=== PATIENT | male | born 1980 | race Asian ===

== ENCOUNTER 2021-01-23 12:42 | Inpatient (IN) | payer OTHER, SELFPAY ==
[~2021-01-23] VITALS: Ht 170.2 cm; Wt 63.5 kg
[2021-01-23 12:43] VITALS: BP 118/61
[2021-01-23] MEDS ORDERED: ACETAMINOPHEN WITH CODEINE 1 TAB TAB PO ONE (14:30)
[2021-01-23] MEDS ORDERED: 0.9% NACL 250ML IVPB ONE (14:30)
[2021-01-23] MEDS ORDERED: AZITHROMYCIN 250 MG TABLET PO ONE (14:30)
[2021-01-23] MEDS ORDERED: ALBUTEROL INHALER 90MCG/INH IH PRN (14:30)
[2021-01-23] MEDS ORDERED: CEFTRIAXONE 1G VIAL IVP ONE (14:30)
[2021-01-23 14:53] LABS: HEMATOCRIT 42.3 % (42-54); LYMPHOCYTES % (AUTO) 11.6 % (21.0-51.0); MEAN CORPUSCULAR HGB CONC 33.6 g/dL (32.0-36.0); MEAN CORPUSCULAR VOLUME 86.3 fL (79-99); MONOCYTES % (AUTO) 4.5 % (3.0-13.0); NEUTROPHILS % (AUTO) 83.7 % (40.0-77.0); PLATELET COUNT (AUTO) 115 K/uL (130-400); RED CELL DISTRIBUTION WIDTH 12.1 % (11.0-15.5); WHITE BLOOD COUNT (AUTO) 4.6 K/uL (4.8-10.8)
[2021-01-23 14:57] LABS: ABG BASE EXCESS 3.1 mmol/L (-2.0-3.0); ABG OXYGEN SATURATION 89.3 % (95.0-99.0); ABG PCO2 39 mmHg (35-48)
[2021-01-23 15:03] LABS: CREATININE 0.9 mg/dL (0.5-1.5); POTASSIUM 3.2 mmol/L (3.5-5.1)
[2021-01-23 15:08] LABS: ALBUMIN 3.8 g/dL (3.5-5.0); BILIRUBIN,TOTAL 0.5 mg/dL (0.2-1.0); CRP QUANTITATIVE 50.5 mg/L (0.00-9.0)
[2021-01-23 15:16] LABS: B-TYPE NATRIURETIC PEPTIDE < 5 pg/mL (0-100)
[2021-01-23 15:51] VITALS: BP 121/65
[2021-01-23] MEDS ORDERED: POTASSIUM BICARB/CIT AC 25 MEQ TABLET.EFF PO ONE (15:53)
[2021-01-23] MEDS ORDERED: ONDANSETRON 4MG INJ IV PRN (17:30)
[2021-01-23] MEDS ORDERED: LACTULOSE 20 GM/30 ML UDCUP PO PRN (17:30)
[2021-01-23] MEDS: CEFTRIAXONE 1G VIAL IVP SCH (17:30)
[2021-01-23] MEDS ORDERED: ACETAMINOPHEN 325 MG TAB PO PRN (17:30)
[2021-01-23] MEDS: DEXAMETHASONE SOD PHOSPHATE 4 MG/ML 1ML VIAL IVP SCH (18:04)
[2021-01-23] MEDS: DOXYCYCLINE 100MG+NS 250ML IV SCH (18:04)
[2021-01-23 18:29] VITALS: BP 128/72
[2021-01-23] MEDS ORDERED: FAMOTIDINE 20MG VIAL IV SCH (21:00)
[2021-01-23 21:52] VITALS: BP 121/68
[2021-01-23 23:07] VITALS: BP 128/75
[2021-01-24] VITALS (7 sets, daily range): BP systolic 97–150; BP diastolic 52–78
[2021-01-24] MEDS: CEFTRIAXONE 1G VIAL IVP SCH (05:20)
[2021-01-24] MEDS: DOXYCYCLINE 100MG+NS 250ML IV SCH (05:20)
[2021-01-24 05:21] LABS: BASOPHILS % (AUTO) 0.2 % (0.0-5.0); HEMATOCRIT 43.4 % (42-54); MEAN CORPUSCULAR HGB CONC 34.1 g/dL (32.0-36.0); MEAN CORPUSCULAR VOLUME 84.9 fL (79-99); MONOCYTES % (AUTO) 6.8 % (3.0-13.0); NEUTROPHILS % (AUTO) 69.8 % (40.0-77.0); PLATELET COUNT (AUTO) 123 K/uL (130-400); RED BLOOD CELL COUNT(AUTO) 5.11 MIL/uL (4.50-6.20); RED CELL DISTRIBUTION WIDTH 12.1 % (11.0-15.5); WHITE BLOOD COUNT (AUTO) 4.1 K/uL (4.8-10.8)
[2021-01-24 05:36] LABS: ALBUMIN 3.6 g/dL (3.5-5.0); BILIRUBIN,TOTAL 0.4 mg/dL (0.2-1.0); CREATININE 0.9 mg/dL (0.5-1.5); CRP QUANTITATIVE 52.4 mg/L (0.00-9.0); POTASSIUM 3.9 mmol/L (3.5-5.1); TOTAL PROTEIN, SERUM 8.1 g/dL (6.0-8.3)
[2021-01-24] MEDS ORDERED: PHARMACY COMMUNICATION**REMDESIVIR ORDER MISC SCH (08:00)
[2021-01-24] MEDS ORDERED: ASCORBIC ACID 500 MG TAB PO SCH (09:00)
[2021-01-24] MEDS ORDERED: ASCORBIC ACID 500 MG TAB ONE (09:27)
[2021-01-24] MEDS ORDERED: FAMOTIDINE 20MG VIAL IV ONE (09:28)
[2021-01-24] MEDS ORDERED: COMPOUND IV REFRIGERATED 1 EACH IVSOLN MISC PRN (09:30)
[2021-01-24] MEDS: ENOXAPARIN SODIUM 40 MG/0.4 ML SYRINGE SQ SCH (10:19)
[2021-01-24] MEDS ORDERED: REMDESIVIR (EUA) 520 200 MG in 0.9% NACL 250ML 250 ML IV SCH (14:00)
[2021-01-24] MEDS: DEXAMETHASONE SOD PHOSPHATE 4 MG/ML 1ML VIAL IVP SCH (17:02)
[2021-01-25] VITALS (17 sets, daily range): BP systolic 83–111; BP diastolic 48–69
[2021-01-25] MEDS: ACETAMINOPHEN 325 MG TAB PO PRN ×2 (02:00→23:33)
[2021-01-25 05:07] LABS: HEMATOCRIT 40.4 % (42-54); LYMPHOCYTES % (AUTO) 17.5 % (21.0-51.0); MEAN CORPUSCULAR HEMOGLOBIN 28.5 pg (27.0-33.0); MEAN CORPUSCULAR HGB CONC 33.7 g/dL (32.0-36.0); MEAN CORPUSCULAR VOLUME 84.7 fL (79-99); MONOCYTES % (AUTO) 9.2 % (3.0-13.0); NEUTROPHILS % (AUTO) 73.1 % (40.0-77.0); PLATELET COUNT (AUTO) 133 K/uL (130-400); RED BLOOD CELL COUNT(AUTO) 4.77 MIL/uL (4.50-6.20); RED CELL DISTRIBUTION WIDTH 12.1 % (11.0-15.5)
[2021-01-25 05:27] LABS: ALBUMIN 3.2 g/dL (3.5-5.0); BILIRUBIN,TOTAL 0.4 mg/dL (0.2-1.0); CREATININE 0.8 mg/dL (0.5-1.5); CRP QUANTITATIVE 23.8 mg/L (0.00-9.0); POTASSIUM 3.7 mmol/L (3.5-5.1); TOTAL PROTEIN, SERUM 7.3 g/dL (6.0-8.3)
[2021-01-25] MEDS: REMDESIVIR LABS MISC SCH (06:00)
[2021-01-25] MEDS ORDERED: GUAIFENESIN 600 MG TABLET.ER PO SCH (09:00)
[2021-01-25] MEDS ORDERED: DEXMEDETOMIDINE HCL 400 MCG in 0.9%NACL 100ML 100 ML IV SCH (09:00)
[2021-01-25] MEDS: ENOXAPARIN SODIUM 40 MG/0.4 ML SYRINGE SQ SCH (09:40)
[2021-01-25] MEDS: REMDESIVIR (EUA) 520 100 MG in 0.9% NACL 250ML 250 ML IV SCH (14:07)
[2021-01-25] MEDS: KCL 20 MEQ ERTAB PO PRN (18:28)
[2021-01-25] MEDS: DEXAMETHASONE SOD PHOSPHATE 4 MG/ML 1ML VIAL IVP SCH (18:28)
[2021-01-25] MEDS: GUAIFENESIN-CODEINE 5 ML SYRUP PO PRN (20:55)
[2021-01-26] VITALS (22 sets, daily range): BP systolic 84–119; BP diastolic 47–84
[2021-01-26 05:12] LABS: BASOPHILS % (AUTO) 0.2 % (0.0-5.0); HEMATOCRIT 42.3 % (42-54); LYMPHOCYTES % (AUTO) 19.9 % (21.0-51.0); MEAN CORPUSCULAR HEMOGLOBIN 28.9 pg (27.0-33.0); MEAN CORPUSCULAR HGB CONC 33.8 g/dL (32.0-36.0); MEAN CORPUSCULAR VOLUME 85.5 fL (79-99); MONOCYTES % (AUTO) 12.9 % (3.0-13.0); NEUTROPHILS % (AUTO) 66.5 % (40.0-77.0); PLATELET COUNT (AUTO) 136 K/uL (130-400); RED BLOOD CELL COUNT(AUTO) 4.95 MIL/uL (4.50-6.20); RED CELL DISTRIBUTION WIDTH 12.1 % (11.0-15.5); WHITE BLOOD COUNT (AUTO) 4.3 K/uL (4.8-10.8)
[2021-01-26 05:24] LABS: ALBUMIN 3.2 g/dL (3.5-5.0); BILIRUBIN,TOTAL 0.5 mg/dL (0.2-1.0); CREATININE 0.8 mg/dL (0.5-1.5); CRP QUANTITATIVE 17.1 mg/L (0.00-9.0); MAGNESIUM 3.1 mg/dL (1.80-2.40); TOTAL PROTEIN, SERUM 7.3 g/dL (6.0-8.3)
[2021-01-26] MEDS: ENOXAPARIN SODIUM 40 MG/0.4 ML SYRINGE SQ SCH (10:52)
[2021-01-26] MEDS: REMDESIVIR (EUA) 520 100 MG in 0.9% NACL 250ML 250 ML IV SCH (14:00)
[2021-01-26 16:53] LABS: BASOPHILS % (AUTO) 0.2 % (0.0-5.0); HEMATOCRIT 42.3 % (42-54); MEAN CORPUSCULAR HEMOGLOBIN 28.8 pg (27.0-33.0); MEAN CORPUSCULAR HGB CONC 33.3 g/dL (32.0-36.0); MEAN CORPUSCULAR VOLUME 86.3 fL (79-99); MONOCYTES % (AUTO) 11.6 % (3.0-13.0); NEUTROPHILS % (AUTO) 70.9 % (40.0-77.0); PLATELET COUNT (AUTO) 154 K/uL (130-400); RED CELL DISTRIBUTION WIDTH 12.1 % (11.0-15.5); WHITE BLOOD COUNT (AUTO) 5.8 K/uL (4.8-10.8)
[2021-01-26] MEDS: DEXAMETHASONE SOD PHOSPHATE 4 MG/ML 1ML VIAL IVP SCH (18:31)
[2021-01-26] MEDS: GUAIFENESIN-CODEINE 5 ML SYRUP PO PRN (23:26)
[2021-01-27] VITALS (21 sets, daily range): BP systolic 84–115; BP diastolic 44–72
[2021-01-27] MEDS: ACETAMINOPHEN 325 MG TAB PO PRN (00:08)
[2021-01-27] MEDS ORDERED: SODIUM CHLORIDE FOR INHALATION 3 ML VIAL.NEB. IH ONE (02:29)
[2021-01-27 04:17] LABS: ALBUMIN 3.1 g/dL (3.5-5.0); BILIRUBIN,TOTAL 0.6 mg/dL (0.2-1.0); CREATININE 0.6 mg/dL (0.5-1.5); POTASSIUM 3.9 mmol/L (3.5-5.1); TOTAL PROTEIN, SERUM 7.1 g/dL (6.0-8.3)
[2021-01-27] MEDS: REMDESIVIR LABS MISC SCH (06:00)
[2021-01-27] MEDS: GUAIFENESIN-DM 200/20 MG 10 ML PO SCH ×3 (10:15→17:37)
[2021-01-27] MEDS: ENOXAPARIN SODIUM 40 MG/0.4 ML SYRINGE SQ SCH (10:16)
[2021-01-27] MEDS: REMDESIVIR (EUA) 520 100 MG in 0.9% NACL 250ML 250 ML IV SCH (14:00)
[2021-01-27] MEDS: HYDROMORPHONE HCL 2 MG TAB PO PRN (17:37)
[2021-01-27] MEDS: DEXAMETHASONE SOD PHOSPHATE 4 MG/ML 1ML VIAL IVP SCH (17:37)
[2021-01-28] VITALS (23 sets, daily range): BP systolic 92–125; BP diastolic 34–88
[2021-01-28] MEDS: GUAIFENESIN-DM 200/20 MG 10 ML PO SCH ×4 (03:31→20:15)
[2021-01-28 04:47] LABS: BASOPHILS % (AUTO) 0.3 % (0.0-5.0); LYMPHOCYTES % (AUTO) 15.8 % (21.0-51.0); MEAN CORPUSCULAR VOLUME 85.3 fL (79-99); MONOCYTES % (AUTO) 15.1 % (3.0-13.0); NEUTROPHILS % (AUTO) 66.6 % (40.0-77.0); PLATELET COUNT (AUTO) 217 K/uL (130-400); RED BLOOD CELL COUNT(AUTO) 5.04 MIL/uL (4.50-6.20)
[2021-01-28 05:06] LABS: ALBUMIN 3.2 g/dL (3.5-5.0); BILIRUBIN,TOTAL 0.6 mg/dL (0.2-1.0); CREATININE 0.7 mg/dL (0.5-1.5); MAGNESIUM 2.6 mg/dL (1.80-2.40); POTASSIUM 3.8 mmol/L (3.5-5.1); TOTAL PROTEIN, SERUM 7.1 g/dL (6.0-8.3)
[2021-01-28] MEDS: REMDESIVIR LABS MISC SCH (06:24)
[2021-01-28] MEDS: ENOXAPARIN SODIUM 40 MG/0.4 ML SYRINGE SQ SCH (07:25)
[2021-01-28] MEDS ORDERED: PHARMACY COMMUNICATION MISC SCH (08:00)
[2021-01-28] MEDS ORDERED: [UNRECOGNIZED DRUG - OTHER] IV SCH (10:30)
[2021-01-28] MEDS ORDERED: TOCILIZUMAB IV SCH (10:30)
[2021-01-28] MEDS: HYDROMORPHONE HCL 2 MG TAB PO PRN ×2 (13:11→22:26)
[2021-01-28] MEDS: REMDESIVIR (EUA) 520 100 MG in 0.9% NACL 250ML 250 ML IV SCH (13:13)
[2021-01-28] MEDS: DEXAMETHASONE SOD PHOSPHATE 4 MG/ML 1ML VIAL IVP SCH (18:09)
[2021-01-29] VITALS (24 sets, daily range): BP systolic 86–121; BP diastolic 53–82
[2021-01-29] MEDS: GUAIFENESIN-DM 200/20 MG 10 ML PO SCH ×4 (02:30→20:25)
[2021-01-29 04:10] LABS: BASOPHILS % (AUTO) 0.5 % (0.0-5.0); EOSINOPHILS % (AUTO) 0.2 % (0.0-8.0); HEMATOCRIT 42.9 % (42-54); LYMPHOCYTES % (AUTO) 21.1 % (21.0-51.0); MEAN CORPUSCULAR HEMOGLOBIN 28.5 pg (27.0-33.0); MEAN CORPUSCULAR HGB CONC 33.8 g/dL (32.0-36.0); MEAN CORPUSCULAR VOLUME 84.4 fL (79-99); MONOCYTES % (AUTO) 12.9 % (3.0-13.0); NEUTROPHILS % (AUTO) 61.5 % (40.0-77.0); PLATELET COUNT (AUTO) 306 K/uL (130-400); RED BLOOD CELL COUNT(AUTO) 5.08 MIL/uL (4.50-6.20); RED CELL DISTRIBUTION WIDTH 11.9 % (11.0-15.5); WHITE BLOOD COUNT (AUTO) 5.5 K/uL (4.8-10.8)
[2021-01-29 04:12] LABS: ABG BASE EXCESS 1.3 mmol/L (-2.0-3.0); ABG HCO3 26.2 mmol/L (21.0-28.0); ABG OXYGEN SATURATION 81.1 % (95.0-99.0); ABG PCO2 43 mmHg (35-48)
[2021-01-29 04:16] LABS: CREATININE 0.7 mg/dL (0.5-1.5); POTASSIUM 4.2 mmol/L (3.5-5.1)
[2021-01-29 06:07] LABS: ALBUMIN 3.3 g/dL (3.5-5.0); BILIRUBIN,DIRECT 0.2 mg/dL (0.0-0.3); BILIRUBIN,TOTAL 0.6 mg/dL (0.2-1.0); TOTAL PROTEIN, SERUM 7.3 g/dL (6.0-8.3)
[2021-01-29] MEDS: REMDESIVIR LABS MISC SCH (06:18)
[2021-01-29] MEDS: ENOXAPARIN SODIUM 40 MG/0.4 ML SYRINGE SQ SCH (08:13)
[2021-01-29] MEDS ORDERED: PHARMACY COMMUNICATION MISC SCH (09:00)
[2021-01-29] MEDS: REMDESIVIR (EUA) 520 100 MG in 0.9% NACL 250ML 250 ML IV SCH (12:53)
[2021-01-29] MEDS: DEXAMETHASONE SOD PHOSPHATE 4 MG/ML 1ML VIAL IVP SCH (16:41)
[2021-01-29] MEDS ORDERED: IOHEXOL-350 75 ML VIAL IV ONE (17:25)
[2021-01-29] MEDS ORDERED: DEXMEDETOMIDINE HCL 400 MCG in 0.9%NACL 100ML 100 ML IV SCH (19:00)
[2021-01-29] MEDS: ENOXAPARIN SODIUM 60 MG/0.6 ML SQ SCH (20:26)
[2021-01-30] VITALS (26 sets, daily range): BP systolic 87–115; BP diastolic 50–70
[2021-01-30] MEDS: GUAIFENESIN-DM 200/20 MG 10 ML PO SCH ×3 (02:30→13:46)
[2021-01-30 04:02] LABS: BASOPHILS % (AUTO) 0.4 % (0.0-5.0); EOSINOPHILS % (AUTO) 0.1 % (0.0-8.0); HEMATOCRIT 43.1 % (42-54); LYMPHOCYTES % (AUTO) 16.7 % (21.0-51.0); MEAN CORPUSCULAR HEMOGLOBIN 28.4 pg (27.0-33.0); MEAN CORPUSCULAR HGB CONC 33.2 g/dL (32.0-36.0); MEAN CORPUSCULAR VOLUME 85.7 fL (79-99); MONOCYTES % (AUTO) 11.8 % (3.0-13.0); NEUTROPHILS % (AUTO) 67.3 % (40.0-77.0); PLATELET COUNT (AUTO) 350 K/uL (130-400); RED BLOOD CELL COUNT(AUTO) 5.03 MIL/uL (4.50-6.20); RED CELL DISTRIBUTION WIDTH 12.1 % (11.0-15.5)
[2021-01-30 04:16] LABS: PROTHROMBIN TIME 10.9 SEC (9.6-11.6)
[2021-01-30 04:21] LABS: ALBUMIN 3.3 g/dL (3.5-5.0); BILIRUBIN,DIRECT 0.2 mg/dL (0.0-0.3); BILIRUBIN,TOTAL 0.7 mg/dL (0.2-1.0); CREATININE 0.7 mg/dL (0.5-1.5); CRP QUANTITATIVE 3.2 mg/L (0.00-9.0); TOTAL PROTEIN, SERUM 7.1 g/dL (6.0-8.3)
[2021-01-30] MEDS: HYDROMORPHONE HCL 2 MG TAB PO PRN (06:09)
[2021-01-30] MEDS: REMDESIVIR LABS MISC SCH (06:15)
[2021-01-30] MEDS: ENOXAPARIN SODIUM 60 MG/0.6 ML SQ SCH (08:13)
[2021-01-30] MEDS: REMDESIVIR (EUA) 520 100 MG in 0.9% NACL 250ML 250 ML IV SCH (13:45)
[2021-01-30] MEDS ORDERED: IOHEXOL-350 75 ML VIAL IV ONE (14:53)
[2021-01-30] MEDS: DEXAMETHASONE SOD PHOSPHATE 4 MG/ML 1ML VIAL IVP SCH (16:51)
[2021-01-30] MEDS: GUAIFENESIN-CODEINE 5 ML SYRUP PO SCH ×2 (18:01→23:37)
[2021-01-30] MEDS: NACL NASAL SPRAY 120 SPRAY/BOTTLE NS PRN (18:02)
[2021-01-31] VITALS (16 sets, daily range): BP systolic 91–106; BP diastolic 48–61
[2021-01-31 04:15] LABS: ALANINE AMINOTRANSFERASE 158 U/L (12-78); ALBUMIN 3.2 g/dL (3.5-5.0); ASPARTATE AMINOTRANSFERASE 42 U/L (10-37); BILIRUBIN,TOTAL 0.7 mg/dL (0.2-1.0); CARBON DIOXIDE 30 mmol/L (21-32); CHLORIDE 100 mmol/L (101-111); CREATININE 0.7 mg/dL (0.5-1.5); GLOMERULAR FILTR. RATE CALC 133 mL/min (>60); GLUCOSE,RANDOM 101 mg/dL (70-105); POTASSIUM 4.1 mmol/L (3.5-5.1); SODIUM SERUM 138 mmol/L (136-145); TOTAL PROTEIN, SERUM 6.9 g/dL (6.0-8.3); UREA NITROGEN, BLOOD 21 mg/dL (7-18)
[2021-01-31 04:31] LABS: CRP QUANTITATIVE < 2.00 mg/L (0.00-9.0)
[2021-01-31] MEDS: GUAIFENESIN-CODEINE 5 ML SYRUP PO SCH ×4 (04:49→22:31)
[2021-01-31] MEDS: REMDESIVIR LABS MISC SCH (06:00)
[2021-01-31 07:26] LABS: HEPATITIS Bs ANTIGEN SCREEN P Negative (Negative)
[2021-01-31] MEDS: ENOXAPARIN SODIUM 40 MG/0.4 ML SYRINGE SQ SCH (08:09)
[2021-01-31] MEDS: NACL NASAL SPRAY 120 SPRAY/BOTTLE NS PRN (08:47)
[2021-01-31] MEDS: REMDESIVIR (EUA) 520 100 MG in 0.9% NACL 250ML 250 ML IV SCH (13:27)
[2021-01-31] MEDS: DEXAMETHASONE SOD PHOSPHATE 4 MG/ML 1ML VIAL IVP SCH (17:01)
[2021-01-31] MEDS: BUSPIRONE HCL 5 MG TABLET PO SCH (20:12)
[2021-01-31] MEDS: SENNOSIDES 8.6 MG TABLET PO SCH (20:12)
[2021-01-31] MEDS: DOCUSATE SODIUM 100 MG CAP PO SCH (20:12)
[2021-02-01] VITALS (25 sets, daily range): BP systolic 87–114; BP diastolic 46–65
[2021-02-01] MEDS: GUAIFENESIN-CODEINE 5 ML SYRUP PO SCH ×4 (04:49→23:13)
[2021-02-01 04:57] LABS: HEMATOCRIT 43.9 % (42-54); MEAN CORPUSCULAR HEMOGLOBIN 28.4 pg (27.0-33.0); MEAN CORPUSCULAR VOLUME 85.9 fL (79-99); RED BLOOD CELL COUNT(AUTO) 5.11 MIL/uL (4.50-6.20); WHITE BLOOD COUNT (AUTO) 9.4 K/uL (4.8-10.8)
[2021-02-01 05:11] LABS: ALANINE AMINOTRANSFERASE 130 U/L (12-78); ALBUMIN 3.2 g/dL (3.5-5.0); ASPARTATE AMINOTRANSFERASE 32 U/L (10-37); BILIRUBIN,TOTAL 0.8 mg/dL (0.2-1.0); CARBON DIOXIDE 29 mmol/L (21-32); CHLORIDE 100 mmol/L (101-111); CREATININE 0.8 mg/dL (0.5-1.5); GLOMERULAR FILTR. RATE CALC 114 mL/min (>60); GLUCOSE,RANDOM 94 mg/dL (70-105); POTASSIUM 4.1 mmol/L (3.5-5.1); SODIUM SERUM 137 mmol/L (136-145); TOTAL PROTEIN, SERUM 6.9 g/dL (6.0-8.3); UREA NITROGEN, BLOOD 26 mg/dL (7-18)
[2021-02-01 05:25] LABS: CRP QUANTITATIVE < 2.00 mg/L (0.00-9.0)
[2021-02-01] MEDS: REMDESIVIR LABS MISC SCH (06:00)
[2021-02-01] MEDS: DOCUSATE SODIUM 100 MG CAP PO SCH ×2 (08:13→20:30)
[2021-02-01] MEDS: BUSPIRONE HCL 5 MG TABLET PO SCH (08:13)
[2021-02-01] MEDS: ENOXAPARIN SODIUM 40 MG/0.4 ML SYRINGE SQ SCH (08:14)
[2021-02-01] MEDS: REMDESIVIR (EUA) 520 100 MG in 0.9% NACL 250ML 250 ML IV SCH (14:37)
[2021-02-01] MEDS ORDERED: PHARMACY COMMUNICATION MISC SCH (16:00)
[2021-02-01] MEDS: DEXAMETHASONE SOD PHOSPHATE 4 MG/ML 1ML VIAL IVP SCH (16:33)
[2021-02-01] MEDS: CEFEPIME HCL 1 GM VIAL IVP SCH (16:33)
[2021-02-01] MEDS: LINEZOLID 600 MG/ISO-OSM 300 ML IV SCH (17:17)
[2021-02-01] MEDS: SENNOSIDES 8.6 MG TABLET PO SCH (20:30)
[2021-02-02] VITALS (23 sets, daily range): BP systolic 84–118; BP diastolic 47–76
[2021-02-02] MEDS: CEFEPIME HCL 1 GM VIAL IVP SCH ×2 (04:13→17:18)
[2021-02-02] MEDS: LINEZOLID 600 MG/ISO-OSM 300 ML IV SCH ×2 (04:30→17:18)
[2021-02-02 05:02] LABS: ALANINE AMINOTRANSFERASE 114 U/L (12-78); ALBUMIN 3.3 g/dL (3.5-5.0); ASPARTATE AMINOTRANSFERASE 31 U/L (10-37); BILIRUBIN,DIRECT 0.2 mg/dL (0.0-0.3); BILIRUBIN,TOTAL 0.7 mg/dL (0.2-1.0); TOTAL PROTEIN, SERUM 6.8 g/dL (6.0-8.3)
[2021-02-02 05:04] LABS: CRP QUANTITATIVE < 2.00 mg/L (0.00-9.0)
[2021-02-02] MEDS: REMDESIVIR LABS MISC SCH (06:48)
[2021-02-02] MEDS: GUAIFENESIN-CODEINE 5 ML SYRUP PO SCH ×3 (08:14→21:02)
[2021-02-02] MEDS: DOCUSATE SODIUM 100 MG CAP PO SCH ×2 (08:14→21:02)
[2021-02-02] MEDS: LUBIPROSTONE 24 MCG CAP PO SCH ×2 (08:14→17:18)
[2021-02-02] MEDS: ENOXAPARIN SODIUM 40 MG/0.4 ML SYRINGE SQ SCH (08:15)
[2021-02-02] MEDS: REMDESIVIR (EUA) 520 100 MG in 0.9% NACL 250ML 250 ML IV SCH (14:17)
[2021-02-02] MEDS: MIDODRINE HCL 5 MG TABLET PO SCH ×2 (18:17→21:02)
[2021-02-02] MEDS: SENNOSIDES 8.6 MG TABLET PO SCH (21:02)
[2021-02-03] VITALS (23 sets, daily range): BP systolic 85–113; BP diastolic 49–67
[2021-02-03 04:24] LABS: BASOPHILS % (AUTO) 0.8 % (0.0-5.0); EOSINOPHILS % (AUTO) 5.2 % (0.0-8.0); HEMATOCRIT 43.4 % (42-54); LYMPHOCYTES % (AUTO) 22.7 % (21.0-51.0); MEAN CORPUSCULAR HEMOGLOBIN 28.3 pg (27.0-33.0); MEAN CORPUSCULAR HGB CONC 32.7 g/dL (32.0-36.0); MEAN CORPUSCULAR VOLUME 86.5 fL (79-99); MONOCYTES % (AUTO) 12.9 % (3.0-13.0); NEUTROPHILS % (AUTO) 56.9 % (40.0-77.0); PLATELET COUNT (AUTO) 395 K/uL (130-400); RED BLOOD CELL COUNT(AUTO) 5.02 MIL/uL (4.50-6.20); RED CELL DISTRIBUTION WIDTH 12.4 % (11.0-15.5); WHITE BLOOD COUNT (AUTO) 8.3 K/uL (4.8-10.8)
[2021-02-03 04:36] LABS: ALBUMIN 3.2 g/dL (3.5-5.0); BILIRUBIN,TOTAL 0.7 mg/dL (0.2-1.0); CREATININE 0.8 mg/dL (0.5-1.5); POTASSIUM 3.6 mmol/L (3.5-5.1); TOTAL PROTEIN, SERUM 6.3 g/dL (6.0-8.3)
[2021-02-03] MEDS: CEFEPIME HCL 1 GM VIAL IVP SCH ×2 (04:45→15:49)
[2021-02-03] MEDS: LINEZOLID 600 MG/ISO-OSM 300 ML IV SCH ×2 (04:45→15:49)
[2021-02-03] MEDS: GUAIFENESIN-CODEINE 5 ML SYRUP PO SCH ×3 (06:09→21:51)
[2021-02-03] MEDS: KCL 20 MEQ ERTAB PO PRN ×2 (06:10→06:14)
[2021-02-03] MEDS: MIDODRINE HCL 5 MG TABLET PO SCH ×3 (06:10→21:51)
[2021-02-03] MEDS: LUBIPROSTONE 24 MCG CAP PO SCH ×2 (08:14→15:51)
[2021-02-03] MEDS: DEXAMETHASONE 4 MG TAB PO SCH (08:14)
[2021-02-03] MEDS: DOCUSATE SODIUM 100 MG CAP PO SCH ×2 (08:15→21:51)
[2021-02-03] MEDS: ENOXAPARIN SODIUM 40 MG/0.4 ML SYRINGE SQ SCH (08:15)
[2021-02-03] MEDS: SENNOSIDES 8.6 MG TABLET PO SCH (21:51)
[2021-02-04] VITALS (24 sets, daily range): BP systolic 91–128; BP diastolic 46–92
[2021-02-04 04:03] LABS: BASOPHILS % (AUTO) 0.7 % (0.0-5.0); EOSINOPHILS % (AUTO) 2.6 % (0.0-8.0); HEMATOCRIT 40.9 % (42-54); LYMPHOCYTES % (AUTO) 25.3 % (21.0-51.0); MEAN CORPUSCULAR HEMOGLOBIN 28.8 pg (27.0-33.0); MEAN CORPUSCULAR HGB CONC 33.5 g/dL (32.0-36.0); MEAN CORPUSCULAR VOLUME 85.9 fL (79-99); MONOCYTES % (AUTO) 10.2 % (3.0-13.0); NEUTROPHILS % (AUTO) 60.1 % (40.0-77.0); PLATELET COUNT (AUTO) 407 K/uL (130-400); RED BLOOD CELL COUNT(AUTO) 4.76 MIL/uL (4.50-6.20); RED CELL DISTRIBUTION WIDTH 12.5 % (11.0-15.5); WHITE BLOOD COUNT (AUTO) 10.7 K/uL (4.8-10.8)
[2021-02-04 04:26] LABS: ALBUMIN 3.2 g/dL (3.5-5.0); BILIRUBIN,TOTAL 0.7 mg/dL (0.2-1.0); CREATININE 0.8 mg/dL (0.5-1.5); MAGNESIUM 2.3 mg/dL (1.80-2.40); POTASSIUM 3.4 mmol/L (3.5-5.1); TOTAL PROTEIN, SERUM 6.4 g/dL (6.0-8.3)
[2021-02-04] MEDS: LINEZOLID 600 MG/ISO-OSM 300 ML IV SCH ×2 (05:09→16:43)
[2021-02-04] MEDS: CEFEPIME HCL 1 GM VIAL IVP SCH ×2 (05:09→16:43)
[2021-02-04] MEDS: GUAIFENESIN-CODEINE 5 ML SYRUP PO SCH ×3 (05:37→21:43)
[2021-02-04] MEDS: MIDODRINE HCL 5 MG TABLET PO SCH ×3 (05:37→21:43)
[2021-02-04] MEDS: DEXAMETHASONE 4 MG TAB PO SCH (08:01)
[2021-02-04] MEDS: LUBIPROSTONE 24 MCG CAP PO SCH ×2 (08:01→16:43)
[2021-02-04] MEDS: ENOXAPARIN SODIUM 40 MG/0.4 ML SYRINGE SQ SCH (08:02)
[2021-02-04] MEDS: DOCUSATE SODIUM 100 MG CAP PO SCH ×2 (08:02→20:25)
[2021-02-04] MEDS: SENNOSIDES 8.6 MG TABLET PO SCH (20:25)
[2021-02-05] VITALS (22 sets, daily range): BP systolic 82–114; BP diastolic 35–69
[2021-02-05 04:06] LABS: BASOPHILS % (AUTO) 0.4 % (0.0-5.0); EOSINOPHILS % (AUTO) 1.1 % (0.0-8.0); HEMATOCRIT 42.3 % (42-54); LYMPHOCYTES % (AUTO) 25.6 % (21.0-51.0); MEAN CORPUSCULAR HEMOGLOBIN 28.8 pg (27.0-33.0); MEAN CORPUSCULAR HGB CONC 33.1 g/dL (32.0-36.0); MONOCYTES % (AUTO) 9.1 % (3.0-13.0); NEUTROPHILS % (AUTO) 62.7 % (40.0-77.0); PLATELET COUNT (AUTO) 390 K/uL (130-400); RED BLOOD CELL COUNT(AUTO) 4.86 MIL/uL (4.50-6.20); RED CELL DISTRIBUTION WIDTH 12.6 % (11.0-15.5); WHITE BLOOD COUNT (AUTO) 11.4 K/uL (4.8-10.8)
[2021-02-05 04:26] LABS: ALBUMIN 3.3 g/dL (3.5-5.0); BILIRUBIN,TOTAL 0.7 mg/dL (0.2-1.0); CREATININE 0.8 mg/dL (0.5-1.5); POTASSIUM 3.4 mmol/L (3.5-5.1); TOTAL PROTEIN, SERUM 6.5 g/dL (6.0-8.3)
[2021-02-05] MEDS: LINEZOLID 600 MG/ISO-OSM 300 ML IV SCH ×2 (04:54→16:17)
[2021-02-05] MEDS: CEFEPIME HCL 1 GM VIAL IVP SCH ×2 (04:54→16:17)
[2021-02-05] MEDS: GUAIFENESIN-CODEINE 5 ML SYRUP PO SCH ×3 (05:05→21:46)
[2021-02-05] MEDS: MIDODRINE HCL 5 MG TABLET PO SCH ×3 (05:05→21:47)
[2021-02-05] MEDS: KCL 20 MEQ ERTAB PO PRN (06:26)
[2021-02-05] MEDS: ENOXAPARIN SODIUM 40 MG/0.4 ML SYRINGE SQ SCH (08:31)
[2021-02-05] MEDS: LUBIPROSTONE 24 MCG CAP PO SCH ×2 (08:31→16:17)
[2021-02-05] MEDS: DEXAMETHASONE 4 MG TAB PO SCH (08:31)
[2021-02-05] MEDS: DOCUSATE SODIUM 100 MG CAP PO SCH ×2 (08:32→21:00)
[2021-02-05] MEDS: SENNOSIDES 8.6 MG TABLET PO SCH (21:00)
[2021-02-06] VITALS (19 sets, daily range): BP systolic 92–129; BP diastolic 40–84
[2021-02-06] MEDS: GUAIFENESIN-CODEINE 5 ML SYRUP PO SCH ×2 (06:01→14:06)
[2021-02-06] MEDS: LINEZOLID 600 MG/ISO-OSM 300 ML IV SCH ×2 (06:01→16:41)
[2021-02-06] MEDS: MIDODRINE HCL 5 MG TABLET PO SCH ×2 (06:01→14:06)
[2021-02-06] MEDS: CEFEPIME HCL 1 GM VIAL IVP SCH ×2 (06:02→16:41)
[2021-02-06 07:57] LABS: BASOPHILS % (AUTO) 0.5 % (0.0-5.0); EOSINOPHILS % (AUTO) 0.5 % (0.0-8.0); HEMATOCRIT 41.8 % (42-54); LYMPHOCYTES % (AUTO) 24.9 % (21.0-51.0); MEAN CORPUSCULAR HEMOGLOBIN 28.5 pg (27.0-33.0); MEAN CORPUSCULAR HGB CONC 33.5 g/dL (32.0-36.0); MONOCYTES % (AUTO) 8.6 % (3.0-13.0); NEUTROPHILS % (AUTO) 64.5 % (40.0-77.0); PLATELET COUNT (AUTO) 401 K/uL (130-400); RED BLOOD CELL COUNT(AUTO) 4.92 MIL/uL (4.50-6.20); RED CELL DISTRIBUTION WIDTH 12.5 % (11.0-15.5); WHITE BLOOD COUNT (AUTO) 14.8 K/uL (4.8-10.8)
[2021-02-06 08:13] LABS: ALBUMIN 3.4 g/dL (3.5-5.0); BILIRUBIN,TOTAL 0.5 mg/dL (0.2-1.0); CREATININE 0.8 mg/dL (0.5-1.5); POTASSIUM 3.4 mmol/L (3.5-5.1); TOTAL PROTEIN, SERUM 6.8 g/dL (6.0-8.3)
[2021-02-06] MEDS: DOCUSATE SODIUM 100 MG CAP PO SCH (08:37)
[2021-02-06] MEDS: ENOXAPARIN SODIUM 40 MG/0.4 ML SYRINGE SQ SCH (08:37)
[2021-02-06] MEDS: DEXAMETHASONE 4 MG TAB PO SCH (08:37)
[2021-02-06] MEDS: LUBIPROSTONE 24 MCG CAP PO SCH ×2 (08:37→16:41)
== END 2021-02-06 19:35 | DRG 871 ==
LOC: EDH 12:42 → EDHIP 12:43 → 2BH 01-24 20:20
PROVIDERS: ADMIT Internal Medicine; ATTEND Internal Medicine
PROC: XW033E5 Introduction of Remdesivir Anti-infective into Peripheral Vein, Percutaneous Approach, New Technology Group 5 (ICD-10-PCS; principal; 2021-01-24)
PROC: 5A0935A Assistance with Respiratory Ventilation, Less than 24 Consecutive Hours, High Flow/Velocity Cannula (ICD-10-PCS; 2021-01-25)
PROC: 5A0935A Assistance with Respiratory Ventilation, Less than 24 Consecutive Hours, High Flow/Velocity Cannula (ICD-10-PCS; 2021-01-26)
PROC: 5A0935A Assistance with Respiratory Ventilation, Less than 24 Consecutive Hours, High Flow/Velocity Cannula (ICD-10-PCS; 2021-01-27)
PROC: XW033H5 Introduction of Tocilizumab into Peripheral Vein, Percutaneous Approach, New Technology Group 5 (ICD-10-PCS; 2021-01-28)
PROC: 5A0935A Assistance with Respiratory Ventilation, Less than 24 Consecutive Hours, High Flow/Velocity Cannula (ICD-10-PCS; 2021-01-28)
PROC: 5A0935A Assistance with Respiratory Ventilation, Less than 24 Consecutive Hours, High Flow/Velocity Cannula (ICD-10-PCS; 2021-01-29)
PROC: 5A09357 Assistance with Respiratory Ventilation, Less than 24 Consecutive Hours, Continuous Positive Airway Pressure (ICD-10-PCS; 2021-01-29)
PROC: 5A0935A Assistance with Respiratory Ventilation, Less than 24 Consecutive Hours, High Flow/Velocity Cannula (ICD-10-PCS; 2021-01-30)
PROC: 5A09357 Assistance with Respiratory Ventilation, Less than 24 Consecutive Hours, Continuous Positive Airway Pressure (ICD-10-PCS; 2021-01-30)
PROC: 5A0935A Assistance with Respiratory Ventilation, Less than 24 Consecutive Hours, High Flow/Velocity Cannula (ICD-10-PCS; 2021-02-01)
PROC: 5A0935A Assistance with Respiratory Ventilation, Less than 24 Consecutive Hours, High Flow/Velocity Cannula (ICD-10-PCS; 2021-02-01)
PROC: 5A09357 Assistance with Respiratory Ventilation, Less than 24 Consecutive Hours, Continuous Positive Airway Pressure (ICD-10-PCS; 2021-02-01)
PROC: 5A0935A Assistance with Respiratory Ventilation, Less than 24 Consecutive Hours, High Flow/Velocity Cannula (ICD-10-PCS; 2021-02-02)
PROC: 5A09357 Assistance with Respiratory Ventilation, Less than 24 Consecutive Hours, Continuous Positive Airway Pressure (ICD-10-PCS; 2021-02-02)
PROC: 5A09357 Assistance with Respiratory Ventilation, Less than 24 Consecutive Hours, Continuous Positive Airway Pressure (ICD-10-PCS; 2021-02-03)
PROC: 5A0935A Assistance with Respiratory Ventilation, Less than 24 Consecutive Hours, High Flow/Velocity Cannula (ICD-10-PCS; 2021-02-04)
PROC: 5A09357 Assistance with Respiratory Ventilation, Less than 24 Consecutive Hours, Continuous Positive Airway Pressure (ICD-10-PCS; 2021-02-04)
PROC: 5A09357 Assistance with Respiratory Ventilation, Less than 24 Consecutive Hours, Continuous Positive Airway Pressure (ICD-10-PCS; 2021-02-05)
DX: A41.9 Sepsis, unspecified organism (principal); U07.1 COVID-19; J12.82 Pneumonia due to coronavirus disease 2019; J96.01 Acute respiratory failure with hypoxia; J15.6 Pneumonia due to other Gram-negative bacteria; E87.1 Hypo-osmolality and hyponatremia; N39.0 Urinary tract infection, site not specified; D68.59 Other primary thrombophilia; E87.6 Hypokalemia; R53.81 Other malaise; D69.6 Thrombocytopenia, unspecified; D72.810 Lymphocytopenia; F41.9 Anxiety disorder, unspecified; Z79.01 Long term (current) use of anticoagulants
CPT/HCPCS: 36415; 36600; 71045; 71275; 80048; 80053; 80076; 82435; 82728; 82803; 82947; 83605; 83615; 83735; 83880; 84132; 84145; 84295; 84484; 85018; 85025; 85027; 85378; 85610; 86140; 86701; 86804; 87040; 87077; 87088; 87186; 87340; 87390; 87522; 87635; 87804; 87880; 93005; 93306; 93356; 93970; 94640; 94660; 94760; 97039; C9803; G0378; J0692; J0696; J1100; J1650; J2020; J2405; J3490; J7050; J8540; Q9967